=== PATIENT | female | born 2000 | race Caucasian/White ===

== ENCOUNTER 2024-08-21 21:46 | Emergency (ER) | payer OTHER ==
[~2024-08-21] VITALS: Ht 160 cm; Wt 51.3 kg
[2024-08-21] MEDS ORDERED: ONDANSETRON HCL 2 MG/ML VIAL IV ONE (23:15)
[2024-08-21] MEDS ORDERED: HYOSCYAMINE SULFATE 0.125 MG TAB.SUBL SL ONE (23:15)
[2024-08-21] MEDS ORDERED: PANTOPRAZOLE SODIUM 40 MG/VIAL VIAL IV PUSH ONE (23:15)
[2024-08-21] MEDS ORDERED: 0.9 % SODIUM CHLORIDE 1,000 ML IV ONE (23:15)
[2024-08-21] MEDS ORDERED: SUCRALFATE 1 G TABLET PO ONE (23:15)
[2024-08-21] MEDS ORDERED: ONDANSETRON HCL 2 MG/ML VIAL ONE (23:25)
[2024-08-21] MEDS ORDERED: HYOSCYAMINE SULFATE 0.125 MG TAB.SUBL ONE (23:25)
[2024-08-22 00:57] LABS: HEMATOCRIT 40.3 % (36.0-45.00); HEMOGLOBIN 13.9 g/dL (12.0-15.00); MEAN CORPUSCULAR HEMOGLOBIN 29.6 pg (27.00-32.0); MEAN CORPUSCULAR HGB CONC 34.4 g/dl (32.0-36.0); PLATELET COUNT 167 K/uL (150-450); RED BLOOD COUNT 4.68 M/uL (4.00-6.00); RED CELL DISTRIBUTION WIDTH 12.6 % (11.5-14.5)
[2024-08-22 01:57] LABS: ALKALINE PHOSPHATASE 96 U/L (50-136); ALT/SGPT 24 U/L (12-78); AMYLASE 134 U/L (25-115); ANION GAP 11 (10.0-20.0); AST/SGOT 13 U/L (15-37); BILIRUBIN TOTAL 0.71 mg/dL (0.3-1.2); BLOOD UREA NITROGEN 18 mg/dL (7-18); BUN CREA RATIO 26 (7.0-25.0); CARBON DIOXIDE 26 mEq/L (21-32); CHLORIDE 110 mmol/L (98-107); CREATININE SERUM 0.68 mg/dL (0.55-1.02); GLOBULINA 4.1 G/DL (2.4-3.5); GLUCOSE FASTING 113 mg/dL (65-100); LIPASE 49 U/L (13-75); OSMOLALITY SERUM 288 MOSM/KG (275-295); POTASSIUM 3.62 mEq/L (3.5-5.1); SODIUM 143 mmol/L (136-145); TOTAL PROTEIN 8.1 gm/dL (6.4-8.2)
[2024-08-22 02:00] LABS: HCG QUANTITATIVE < 1 mUI/mL (1-3)
[2024-08-22] MEDS ORDERED: ONDANSETRON ODT8 MG PO (03:06)
[2024-08-22] MEDS ORDERED: PEPCID AC20 MG PO (03:06)
== END 2024-08-22 04:24 | disposition home or self-care (01) ==
LOC: ER 21:48
PROVIDERS: General Practice
DX: K29.70 Gastritis, unspecified, without bleeding (principal); Z88.8 Allergy status to other drugs, medicaments and biological substances; Z91.018 Allergy to other foods

== ENCOUNTER → 2024-08-22 | Emergency (ER) | payer OTHER ==
[~2024-08-22] MED LIST: ONDANSETRON ODT8 MG PO; PEPCID AC20 MG PO
== END | disposition home or self-care (01) ==
LOC: ER 05:36
DX: K29.70 Gastritis, unspecified, without bleeding (principal); R11.10 Vomiting, unspecified; Z91.018 Allergy to other foods; Z88.1 Allergy status to other antibiotic agents